=== PATIENT | female | born 1940 | race Two or more races ===

== ENCOUNTER 2022-10-28 13:38 | Outpatient (CLI) | payer OTHER | END 2022-10-28 13:39 | disposition home or self-care (01) | LOC: LAB 13:38 | PROVIDERS: ATTEND Emergency Medicine | DX: Z20.828 Contact with and (suspected) exposure to other viral communicable diseases (principal) ==

== ENCOUNTER 2022-11-08 12:54 | Outpatient (CLI) | payer OTHER | END 2022-11-08 12:58 | disposition home or self-care (01) | LOC: LAB 12:54 | DX: R05.9 Cough, unspecified (principal); R50.9 Fever, unspecified ==